=== PATIENT | male | born 1945 | race Caucasian/White ===

== ENCOUNTER → 2017-07-11 | Outpatient (CLI) | payer OTHER, BC ==
[~2017-07-11] MED LIST: ATENOLOL 25 MG25 M1; COZAAR 25 MG TA25 M2; DICLOFENAC SODI75 MG PO; LOSARTAN-HCTZ1 EACH PO; MULTIVITAMINS1 EAC7 PO; NORCO 5-325 TA1 EACH PO; PRESERVISION A1 EAC2 PO; SIMVASTATIN5 MG PO; TENORMIN50 MG PO
== END ==
LOC: RAD 10:05
DX: M79.661 Pain in right lower leg (principal)

== ENCOUNTER → 2018-02-04 | Outpatient (CLI) | payer OTHER, BC | LOC: RAD 10:37 | DX: R04.2 Hemoptysis (principal) ==

== ENCOUNTER → 2020-08-16 | Outpatient (CLI) | payer OTHER, BC ==
[~2020-08-16] VITALS: Ht 177.8 cm; Wt 77.6 kg
[~2020-08-16] MED LIST changes: +ACID CONTROLLER20 MG PO; +BISOPROLOL FUMAR5 MG PO; +COQ-10100 MG PO; +LIPITOR 20 MG T20 M1 PO; +TRAZODONE HCL100 MG PO; +VITAMIN D3125 MC2 PO
--- NOTE | ~2020-08-16 | P ---
[facility] [place] [place] [address] PROCEDURE REPORT Name: JENNIE MURRAY Room #: REG [facility] Elsa#: [id number] Admission: 08/16/20 Attend Phys: Pavel Stapleton Discharge: Date of : 41 Report #: [id number] THIS REPORT FOR: cc: Jeremy Del Toro MD, John L. MD McElhinney, Christian C. MD ~ DOC #: [id number] cc: MD Pavel Partida MD DATE OF SERVICE: 08/16/2020 PROCEDURE PERFORMED: Upper endoscopy with esophageal dilation. INDICATIONS FOR PROCEDURE: The patient is a 74-year-old male with a history of gastroesophageal reflux disease, currently taking Pepcid 20 mg on a daily basis. Denies any significant heartburn symptoms. He does report mild dysphagia. He underwent an upper endoscopy by myself in 2019 for dysphagia. Dilation was helpful. Denies any nausea or vomiting. Plan is for upper endoscopy. DESCRIPTION OF PROCEDURE: The risks and benefits of the procedure were explained to the patient, those risks including but not limited to bleeding, perforation and the risk of sedation. He understood these risks and gave informed consent. Sedation was given using propofol per anesthesia. Next, using a standard Olympus upper endoscope, the scope was placed in the patient's mouth and advanced under direct vision through the esophagus, stomach and into the second portion of the duodenum. The larynx was normal in appearance. The esophagus was normal throughout. The GE junction was normal. Overall, the gastric mucosa was normal. The pylorus was normal and patent. The duodenal bulb, first and second portion were all normal. The scope was then brought back up into the patient's stomach and a Savary guidewire was inserted through the scope, leaving the guidewire in place as the scope was then withdrawn. Next, a 51-Tongan Savary dilation of the esophagus was performed without difficulty. The wire and dilator removed. The scope was reintroduced into the patient's stomach. There was no evidence of mucosal tear after dilation. The scope was then withdrawn and the procedure terminated. The patient tolerated the procedure well. IMPRESSION: Normal upper endoscopy. RECOMMENDATIONS: 1. Continue daily Pepcid. 2. Observe the patient post-dilation. 3. We will proceed with colonoscopy next today. Thank you for allowing me to participate in his care. [address] [address] PROCEDURE REPORT Name: JENNIE MRURAY Room #: REG DANIEL Hunter#: [id number] Admission: 08/16/20 Attend Phys: Pavel Stapleton Discharge: Date of : 41 Report #: [id number] Pavel Camara MD CCM/DIANA By: [id number] [id number] Pavel Camara MD /alistair
--- NOTE | ~2020-08-16 | P ---
[facility] [place] [place] [address] PROCEDURE REPORT Name: JENNIE MURRAY Room #: REG Herb Hunter#: [id number] Admission: 08/16/20 Attend Phys: Pavel Stapleton Discharge: Date of : 41 Report #: [id number] THIS REPORT FOR: cc: Jeremy Del Toro MD, John L. MD McElhinney, Christian C. MD ~ DOC #: [id number] cc: MD Pavel Partida MD DATE OF SERVICE: 08/16/2020 PROCEDURE PERFORMED: Colonoscopy with biopsies. HISTORY OF PRESENT ILLNESS: The patient is a 74-year-old male with a history of colon polyps 5 years ago, here for routine followup. Denies any symptoms. No family history of colon cancer. He has had a partial sigmoid resection for diverticulitis in the past. DESCRIPTION OF PROCEDURE: The risks and benefits of the procedure were explained to the patient, those risks including but not limited to bleeding, perforation and the risk of sedation. He understood these risks and gave informed consent. Sedation was given using propofol per anesthesia. Next, a digital rectal exam was initially performed, which was normal. Next, using a standard Olympus colonoscope, the scope was placed in the patient's anus and advanced under direct vision to the cecum. The overall prep was excellent. In the cecum, there were 2 polyps, the smaller was 3 mm in size, the larger was 5 mm. Both were removed with cold forceps, otherwise normal. The ileocecal valve was normal. A few scattered diverticula were noted in the ascending colon. No evidence of inflammation. The transverse colon was normal. In the descending colon, a 3 mm sessile polyp was noted and removed with cold forceps. A few small scattered diverticula were noted in the remaining sigmoid colon. The surgical anastomosis in the distal sigmoid colon was well healed and widely patent. The rectal mucosa was normal. On retroflexion, small nonbleeding internal hemorrhoids were noted. The scope was then withdrawn and the procedure terminated. The patient tolerated the procedure well. IMPRESSION: 1. Three small colonic polyps. 2. Mild diverticulosis. 3. Internal hemorrhoids. 4. Otherwise, normal colonoscopy. RECOMMENDATIONS: 1. Await biopsy results. 2. If polyps are adenomatous, repeat in [address] [address] PROCEDURE REPORT Name: JENNIE MURRAY Room #: REG DANIEL Hunter#: [id number] Admission: 08/16/20 Attend Phys: Pavel Stapleton Discharge: Date of : 41 Report #: [id number] Thank you for allowing me to participate in his care. Pavel Camara MD CCM/DIANA By: [id number] [id number] Pavel Camara MD /alistair
--- NOTE | 2020-08-18 19:07 | PATH ---
[facility] [place] [address] PATHOLOGY RPT PROCEDURE Name: SCOTT MURRAY Poncho Room #: REG [facility] M.R.#: [id number] Admission: 08/16/20 Date of : 41 Discharge: Report #: [id number] Path Case #: [id number] [facility] Accession Number: [id number] . 01 Material submitted: . PART A: cecum - CECAL POLYPS X2 PART B: colon - DESCENDING COLON POLYP. Modifiers: descending . 01 Clinical history: . HX OF POLYPS/DYSPHAGIA COLON POLYPS, DIVERTICULOSIS . 02 Diagnosis: A. Polyps x 2, cecal polyps, endoscopic biopsy: - One fragment showing tubular adenoma without high grade dysplasia. - Remainder of the fragments showing hyperplastic polyps without dysplasia. . B. Polyp, descending colon polyp, endoscopic biopsy: - Minute crypt adenoma without high grade dysplasia. - Background of hyperplastic changes without any dysplasia. (IUV/db; 08/18/2020) [facility] 08/18/2020 1510 Local . 02 Electronically signed: . Davina Ramirez MD, Pathologist NPI- [id number] . 01 Gross description: . A. Received in formalin labeled "Scott Murray and cecal polyps x 2". Received are multiple aguillon-brown soft tissue fragments ranging from 0.1-0.2 cm. The specimen is entirely submitted in cassette A1. . B. Received in formalin labeled "Scott Murray and descending colon polyp". Received are 2 aguillon-brown soft tissue fragments ranging from 0.1-0.3 cm. The specimen is entirely admitted in cassette B1.([facility]; 08/17/2020) . J/[facility] 08/17/2020 [facility]3 Local . 02 Pathologist provided ICD-10: D12.0, K63.5, D12.4 . 02 CPT . 687069, 798366 Specimen Comment: A courtesy copy of this report has been sent to [phone], [phone], [place] [address] PATHOLOGY RPT PROCEDURE Name: SCOTT MURRAY Room #: REG [facility] Elsa#: [id number] Admission: 08/16/20 Date of : 41 Discharge: Report #: [id number] Path Case #: [id number] Specimen Comment: [id number] Specimen Comment: Report sent to / DR RUBIO Performed at: [address] [facility] [address], [place], [place] [id number] MD Eitan Bryson MD Phone: [phone] Performed at: [address] [id number] MD Davina Ramirez MD Phone: [phone]
== END | disposition home or self-care (01) ==
LOC: GI 07:01
PROVIDERS: ATTEND Specialist
DX: Z12.11 Encounter for screening for malignant neoplasm of colon (principal); Z86.010 Personal history of colon polyps; D12.0 Benign neoplasm of cecum; D12.4 Benign neoplasm of descending colon; K57.30 Diverticulosis of large intestine without perforation or abscess without bleeding; K64.8 Other hemorrhoids; R13.10 Dysphagia, unspecified; K21.9 Gastro-esophageal reflux disease without esophagitis; I10 Essential (primary) hypertension; E78.00 Pure hypercholesterolemia, unspecified; M10.9 Gout, unspecified; F17.210 Nicotine dependence, cigarettes, uncomplicated; Z98.890 Other specified postprocedural states; Z98.0 Intestinal bypass and anastomosis status; Z79.899 Other long term (current) drug therapy; Z90.49 Acquired absence of other specified parts of digestive tract; Z85.46 Personal history of malignant neoplasm of prostate
CPT/HCPCS: 62110; 62900